=== PATIENT | male | born 1950 | race Caucasian/White ===

== ENCOUNTER 2022-11-23 07:46 | Day surgery (SDC) | payer MEDICARE, BC ==
[~2022-11-23 07:46] MED LIST: Sodium Chloride 0.9% 10 ML Syringe FLUSH PRN
[2022-11-23] MEDS ORDERED: Lidocaine 2% 5 ML SDV IV ONE (07:47)
[2022-11-23] MEDS ORDERED: Propofol 200 MG/20 ML SDV IV ONE (07:47)
[2022-11-23] MEDS: Lactated Ringers 1,000 ML IV SCH (08:30)
[2022-11-23] MEDS: Simethicone Drops 40 MG/0.6 ML 30 ML Bottle PO ONE (09:32)
== END 2022-11-23 11:05 | disposition home or self-care (01) ==
LOC: FB.SDS 07:46
PROVIDERS: ATTEND Surgery
DX: Z12.11 Encounter for screening for malignant neoplasm of colon (principal); D12.6 Benign neoplasm of colon, unspecified; K57.30 Diverticulosis of large intestine without perforation or abscess without bleeding; F32.A Depression, unspecified; E78.5 Hyperlipidemia, unspecified; I10 Essential (primary) hypertension; E07.9 Disorder of thyroid, unspecified; Z79.890 Hormone replacement therapy; Z79.899 Other long term (current) drug therapy; Z79.82 Long term (current) use of aspirin; Z88.1 Allergy status to other antibiotic agents; Z98.890 Other specified postprocedural states
CPT/HCPCS: 00812; 88305; A9270-GY; J2704; J7120

== ENCOUNTER 2023-01-31 06:39 | Day surgery (SDC) | payer MEDICARE, BC ==
[2023-01-31] MEDS ORDERED: Propofol 200 MG/20 ML SDV IV ONE (06:40)
[2023-01-31] MEDS ORDERED: Sodium Chloride 0.9% 10 ML Syringe FLUSH PRN (06:45)
[2023-01-31] MEDS ORDERED: Lactated Ringers 1,000 ML IV SCH (06:45)
== END 2023-01-31 09:19 | disposition home or self-care (01) ==
LOC: FB.SDS 06:39
PROVIDERS: ATTEND Surgery
DX: K29.50 Unspecified chronic gastritis without bleeding (principal); K29.80 Duodenitis without bleeding; K44.9 Diaphragmatic hernia without obstruction or gangrene; K21.9 Gastro-esophageal reflux disease without esophagitis; F32.A Depression, unspecified; E78.5 Hyperlipidemia, unspecified; I10 Essential (primary) hypertension; R01.1 Cardiac murmur, unspecified; Z98.890 Other specified postprocedural states; Z79.890 Hormone replacement therapy; Z79.82 Long term (current) use of aspirin; Z79.899 Other long term (current) drug therapy; Z88.1 Allergy status to other antibiotic agents
CPT/HCPCS: 00731; 88305; 88342; 99100; J2704; J7120